=== PATIENT | female | born 1970 | race Caucasian/White ===

== ENCOUNTER → 2019-01-08 06:27 | Day surgery (SDC) | payer BC ==
[~2019-01-08 06:27] MED LIST: Bacitracin OINTMENT* 0.5% 0.5 oz TUBE ONE; Buffered Lidocaine 1% SYRIN* 1 ML/SYRINGE INTRADERM ONE; Bupivacaine 0.25% SDV PF* 10 ML VIAL INJ ONE; Lactated Ringers 1000 ML Bag* 1,000 ML IV SCH; Lidocaine 2% JELLY* 20 ML (for OR use) ONE; Lidocaine 2% PF * 5 ML VIAL ONE; Midazolam* 1 MG/ML 2 ML VIAL (2 MG) ONE; Naloxone* 0.4 MG/ML 1 ML VIAL IV PRN; Propofol* 10 MG/ML 20 ML BTL ONE; ceFOXitin 2 GM IVPREMIX* 2 GM/50 ML BAG ONE; fentaNYL* 50 MCG/ML 2 ML VIAL (100 MCG VIAL) ONE
[2019-01-08 07:42] LABS: ABS Basophils 0.1 10^3/ul (0-0.2); ABS Eosinophils 0.1 10^3/ul (0-0.6); ABS Monocytes 0.5 10^3/ul (0-0.8); Eosinophil % 1.9 %; Hematocrit 41 % (35-47); Hemoglobin 14.4 g/dL (12.0-16.0); Mean Corpuscular HGB Conc 35 g/dL (31-36); Mean Corpuscular Hemoglobin 35 pg (27-31); Mean Corpuscular Volume 101 fL (80-97); Mean Platelet Volume 7.9 fL (7.4-10.4); Nucleated Red Blood Cells % 0.1; Platelet Count 161 10^3/uL (150-450); Red Blood Count 4.11 10^6 /uL (3.70-4.87); Red Cell Distribution Width 14 % (10-15); White Blood Count 3.6 10^3/uL (3.5-10.8)
[2019-01-08 07:52] LABS: BUN/Creatinine Ratio 12.7 (8-20); Blood Urea Nitrogen 7 mg/dL (6-24); CO2 Carbon Dioxide 28 mmol/L (22-32); Calcium 9.6 mg/dL (8.6-10.3); Chloride 100 mmol/L (101-111); EGFR African American 142.1 (>60); EGFR Non-African American 117.5 (>60); Glucose 105 mg/dL (70-100); Sodium 135 mmol/L (135-145)
[2019-01-08 07:59] LABS: Activated Partial Thrombo Time 30.2 seconds (26.0-38.0); Anion Gap 7 mmol/L (2-11); INR 0.92 (0.82-1.09)
--- NOTE | 2019-01-08 11:05 | OP ---
DATE OF OPERATION: 01/08/19 - [facility] DATE OF : 68 ATTENDING SURGEON: Adelso Grossman MD PRE-OP DIAGNOSIS: Anal fistula. POST-OP DIAGNOSIS: Fistulous tract. PROCEDURES PERFORMED: Rectal examination under anesthesia, incision and drainage of fistulous tract. INDICATION FOR PROCEDURE: Persistent drainage, perianal fistulous tract. Risks include but not limited to bleeding, infection, persistent fistula, temporary or permanent incontinence to gas or stool explained to the patient. She seemed to understand, agreed to the procedure, and all questions were answered. DESCRIPTION OF PROCEDURE: The patient was taken to the operating room, placed in the prone jackknife position. Sedation was given by the anesthesiologist. The buttock was taped apart. She was prepped and draped in sterile fashion. Time-out was performed, correct patient, correct procedure. The drainage site was probed with lacrimal duct probe. This traveled slightly towards the midline , but did not continue towards the rectum. The tract was injected with hydrogen peroxide and anal retractors were placed. Distal rectum appeared normal. The hydrogen peroxide did not traverse towards the rectum or was not noted to come out anywhere in the rectum. It became apparent that it did not appear to be anal fistula, which connected with the rectum. At that point, I anesthetized the skin around the open tract, opened this area and found the tract down using Bovie cautery. It ended within the subcutaneous tissue. Again , it did not appear to traverse anywhere, towards or into the rectum. This was irrigated a few times, both with the hydrogen peroxide and saline. Any granulation tissue was strictly towards the surface of the skin and this was cauterized. Antibiotic ointment was applied and gauze was placed over this. She tolerated the procedure well. She was taken to Recovery in stable condition. [id number]/[facility] #: [id number] [facility]
[2019-01-08 15:59] VITALS: BP 159/92
== END | disposition home or self-care (01) ==
LOC: OR 06:27
PROVIDERS: ATTEND Surgery
DX: K60.3 Anal fistula (principal); Z72.0 Tobacco use; K21.9 Gastro-esophageal reflux disease without esophagitis; D51.3 Other dietary vitamin B12 deficiency anemia; D50.8 Other iron deficiency anemias; F10.10 Alcohol abuse, uncomplicated; Z98.84 Bariatric surgery status
CPT/HCPCS: 36415; 80048; 85025; 85610; 85730; A9270-GY; J0694; J2250; J2704; J3010; J3490

== ENCOUNTER 2023-10-19 01:37 | Inpatient (IN) ==
[2023-10-19] MEDS ORDERED: cefTRIAXone 2 GM ADDV.VIAL 2 GM in NS 0.9% 100 ml BAG 100 ML IV ONE (01:41)
[2023-10-19 02:14] LABS: ABS Basophils 0.1 10^3/uL (0.0-0.1); ABS Eosinophils 0.1 10^3/uL (0.0-0.5); ABS Monocytes 0.7 10^3/uL (0.0-0.9); ABS Neutrophils 14.4 10^3/uL (1.5-7.6); ABS Nucleated RBC 0.01 10^3/ul; Eosinophil % 0.5 %; Hematocrit 32.1 % (35-45); Hemoglobin 11.3 g/dL (11.5-14.3); Lymphocyte % 6.2 %; Mean Corpuscular Hemoglobin 36.1 pg (27-33); Mean Corpuscular Hgb Conc 35.1 g/dL (31-36); Mean Corpuscular Volume 102.7 fL (80-97); Mean Platelet Volume 7.6 fL (7.5-11.2); Nucleated Red Blood Cells % 0.1 %/100WBC (0.0-0.8); Platelet Count 249 10^3/uL (150-450); Red Blood Count 3.12 10^6/uL (3.63-4.92); Red Cell Distribution Width 15.5 % (12-17); White Blood Count 16.2 10^3/uL (3.8-11.8)
[2023-10-19] MEDS: cefTRIAXone 2 gm/50 mL D5W 2 GM/50 ML BAG IV ONE (02:20)
[2023-10-19 02:38] LABS: High Sens Troponin Baseline 9 pg/mL (<15)
[2023-10-19 02:58] LABS: Activated Partial Thrombo Time 28.3 seconds (26.0-38.0); INR 1.3 (0.83-1.13)
[2023-10-19] MEDS: Lactated Ringers 1000 ml BAG 1,000 ML IV ONE ×2 (03:05)
[2023-10-19 03:16] LABS: ALT 16 U/L (7-52); Sodium 118 mmol/L (135-145)
[2023-10-19] MEDS ORDERED: Nicotine GUM 2MG FRUIT FLAVOR PO PRN (03:16)
[2023-10-19 03:17] LABS: Albumin 2.6 g/dL (3.2-5.2); Albumin/Globulin Ratio 0.6 (1-3); Alkaline Phosphatase 130 U/L (35-149); Anion Gap 11 mmol/L (2-16); Blood Urea Nitrogen 5 mg/dL (6-24); C Reactive Protein 174.85 mg/L (<8.01); CO2 Carbon Dioxide 22 mmol/L (22-32); Calcium 7.6 mg/dL (8.6-10.3); Chloride 85 mmol/L (101-111); Creatinine, Serum 0.68 mg/dL (0.51-0.95); Globulin 4.6 g/dL (2-4); Glucose 109 mg/dL (70-100); Total Bilirubin 1.2 mg/dL (0.2-1.0); Total Protein 7.2 g/dL (6.4-8.9); eGFR CKD-EPI 103.4 (>60)
[2023-10-19 03:25] LABS: Vitamin B12 > 1450 pg/mL (180-914)
[2023-10-19 03:32] LABS: Erythrocyte Sed Rate 67 mm/Hr (0-29)
[2023-10-19 03:34] LABS: Osmolality Serum 252 mOsm/kg (275-295)
[2023-10-19] MEDS: Thiamine 100 MG/ML 2 ml VIAL (200 mg) IM ONE (03:39)
[2023-10-19 04:19] LABS: Urine Osmo 153 mOsm/kg (150-1150)
[2023-10-19 05:14] LABS: Potassium Redraw 3.5 mmol/L (3.5-5.0)
[2023-10-19 05:56] LABS: Urine Appearance Clear; Urine Bilirubin Negative (Negative); Urine Blood Negative (Negative); Urine Color Yellow; Urine Glucose Negative (Negative); Urine Ketones Negative (Negative); Urine Nitrite Negative (Negative); Urine Protein Negative (Negative); Urine Specific Gravity 1.009 (1.002-1.030); Urine Urobilinogen Negative (Negative); Urine pH 5.5 (5.0-8.0)
[2023-10-19 06:41] LABS: Calcium 6.9 mg/dL (8.6-10.3); Creatinine, Serum 0.47 mg/dL (0.51-0.95); Potassium 3.4 mmol/L (3.5-5.0); eGFR CKD-EPI 113.1 (>60)
[2023-10-19] MEDS: Potassium Chlor 20 meq TAB.ER PO ONE (07:11)
[2023-10-19 07:51] LABS: Magnesium 1.5 mg/dL (1.9-2.7)
[2023-10-19] MEDS: Enoxaparin 40 MG/0.4 ML SYR SUBCUT SCH (08:15)
[2023-10-19] MEDS: Multivitamins/Minerals TAB PO SCH (08:16)
[2023-10-19] MEDS: Azithromycin 500 mg/250 ml NS 500 MG/250 ML BAG IVPB SCH (10:03)
[2023-10-19] MEDS: Nicotine PATCH 14 MG/24 HR PATCH TRANSDERM SCH (11:19)
[2023-10-19 12:43] LABS: Calcium 7.3 mg/dL (8.6-10.3); Creatinine, Serum 0.46 mg/dL (0.51-0.95); Potassium 3.7 mmol/L (3.5-5.0); eGFR CKD-EPI 113.6 (>60)
[2023-10-19] MEDS: Magnesium Sulfate 2 gm BAG 2 GM/50 ML BAG IVPB ONE (12:50)
[2023-10-19] MEDS: Magnesium Sulfate IV 1GM/100ML 1 GM/100 ML BAG IV ONE (14:01)
[2023-10-20] MEDS ORDERED: cefTRIAXone 2 gm/50 mL D5W 2 GM/50 ML BAG IV SCH (02:00)
[2023-10-20] MEDS: cefTRIAXone 2 gm/50 mL D5W 2 GM/50 ML BAG IV SCH (03:07)
[2023-10-20 06:08] LABS: ABS Lymphocytes 1.4 10^3/uL (1.0-4.8); ABS Monocytes 0.6 10^3/uL (0.0-0.9); ABS Neutrophils 6.4 10^3/uL (1.5-7.6); Eosinophil % 0.6 %; Hematocrit 26.5 % (35-45); Hemoglobin 9.2 g/dL (11.5-14.3); Lymphocyte % 16.9 %; Mean Corpuscular Hemoglobin 36.2 pg (27-33); Mean Corpuscular Hgb Conc 34.8 g/dL (31-36); Mean Corpuscular Volume 104.1 fL (80-97); Mean Platelet Volume 7.7 fL (7.5-11.2); Platelet Count 188 10^3/uL (150-450); Red Blood Count 2.54 10^6/uL (3.63-4.92); White Blood Count 8.5 10^3/uL (3.8-11.8)
[2023-10-20 06:26] LABS: Albumin 1.9 g/dL (3.2-5.2); Albumin/Globulin Ratio 0.7 (1-3); Calcium 7.1 mg/dL (8.6-10.3); Creatinine, Serum 0.42 mg/dL (0.51-0.95); Globulin 2.9 g/dL (2-4); Magnesium 2.2 mg/dL (1.9-2.7); Potassium 3.6 mmol/L (3.5-5.0); Total Bilirubin 0.5 mg/dL (0.2-1.0); Total Protein 4.8 g/dL (6.4-8.9); eGFR CKD-EPI 116.2 (>60)
[2023-10-20] MEDS: Azithromycin 500 mg/250 ml NS 500 MG/250 ML BAG IVPB SCH (10:13)
[2023-10-20] MEDS: Cyanocobalamin INJ 1,000 MCG/ML VIAL 1 ML VIAL IM ONE (18:04)
[2023-10-21 06:39] LABS: INR 1.03 (0.83-1.13)
[2023-10-21 06:44] LABS: Hematocrit 25.4 % (35-45); Hemoglobin 8.8 g/dL (11.5-14.3); Mean Corpuscular Hemoglobin 36.1 pg (27-33); Mean Corpuscular Hgb Conc 34.7 g/dL (31-36); Mean Corpuscular Volume 103.9 fL (80-97); Mean Platelet Volume 7.3 fL (7.5-11.2); Platelet Count 194 10^3/uL (150-450); Red Blood Count 2.45 10^6/uL (3.63-4.92); Red Cell Distribution Width 14.8 % (12-17); White Blood Count 5.8 10^3/uL (3.8-11.8)
[2023-10-21 06:56] LABS: Calcium 7.5 mg/dL (8.6-10.3); Creatinine, Serum 0.39 mg/dL (0.51-0.95); eGFR CKD-EPI 118.3 (>60)
[2023-10-21 08:37] LABS: ABS Basophils 0.1 10^3/uL (0.0-0.1); ABS Eosinophils 0.1 10^3/uL (0.0-0.5); ABS Lymphocytes 1.6 10^3/uL (1.0-4.8); ABS Monocytes 0.4 10^3/uL (0.0-0.9); ABS Neutrophils 3.6 10^3/uL (1.5-7.6); Eosinophil % 1.1 %; Lymphocyte % 27.9 %
[2023-10-21 13:16] LABS: Hematocrit 33.9 % (35-45); Hemoglobin 11.4 g/dL (11.5-14.3)
[2023-10-21 13:59] VITALS: BP 136/64
== END 2023-10-21 16:55 | disposition home or self-care (01) | DRG 720 ==
LOC: ED 01:37 → SUATTDRO 02:44 → EDHOLD 02:44 → MED 13:54
PROVIDERS: ADMIT Internal Medicine; ATTEND Internal Medicine